=== PATIENT | male | born 2000 | race Caucasian/White ===

== ENCOUNTER 2023-02-21 18:55 | Emergency (ER) | payer MEDICAID, SELFPAY ==
[2023-02-21] VITALS (7 sets, daily range): BP systolic 121–134; BP diastolic 83–106; PULSE 63–69; RESP 15–17; TEMP 36.7–36.8; O2SAT 98–100; BMI 22.8
--- NOTE | 2023-02-21 19:05 | ECG_ITS ---
APPROVED REPORT Exam: Resting ECG HR:70 bpm ECG Measurements Heart Rate 70 AXES [place] 142 P 50 QRSd 89 QRS 68 QT 361 T 74 QTc 382 Conclusion SINUS RHYTHM NORMAL ECG UNCONFIRMED REPORT Electronically signed by : Wilfredo Bass MD 02/22/2023 14:45:25
[2023-02-21 19:24] LABS: Basophils # 0.1 K/mm3 (0-0.2); Basophils % 0.5 % (0.1-2.0); Eosinophils # 0.3 K/mm3 (0.0-0.4); Eosinophils % 2.9 % (0.1-12.0); Hematocrit 47.5 % (42.0-52.0); Hemoglobin 16.2 g/dL (14.1-18.0); Lymphocytes # 3.6 K/mm3 (0.7-4.5); Lymphocytes % 35.5 % (10-50); Mean Corpuscular HGB Conc 34.1 g/dL (31.8-35.4); Mean Corpuscular Hemoglobin 30.5 pg (27.0-31.2); Mean Corpuscular Volume 89.7 fl (80-94); Mean Platelet Volume 8.4 fl (7.4-10.4); Monocytes # 0.3 K/mm3 (0.1-1.0); Monocytes % 3.4 % (1.7-9.3); Neutrophils # 5.8 K/mm3 (1.8-7.8); Neutrophils % 57.8 % (37.0-80.0); Platelet Count 335 K/mm3 (142-424); Red Blood Count 5.29 M/mm3 (4.60-6.20); Red Cell Distribution Width 13.9 % (11.5-17.5)
[2023-02-21 19:25] LABS: Chloride 102 mmol/L (98-107); Sodium 141 mmol/L (136-145)
[2023-02-21 19:28] LABS: Alanine Aminotransferase 28 U/L (12-78); Albumin Level 4.9 g/dl (3.5-5.0); Albumin/Globulin Ratio 1.4 (1.1-1.8); Alkaline Phosphatase 86 U/L (38-126); Aspartate Amino Transferase 33 U/L (17-59); Bilirubin,Total 0.5 mg/dl (0.2-1.3); Blood Urea Nitrogen 6 mg/dl (9-20); Calcium 9.2 mg/dl (8.4-10.2); Carbon Dioxide 29 mmol/L (22.0-30.0); Creatinine Clearance Estimated 122 mL/min (50-200); Estimated Glomerular Filt Rate 104 ml/min (>60); GFR (African American) 125 ML/MIN (>60); Globulin 3.4 g/dL (1.3-3.2); Glucose 99 mg/dl (74-100); Lipase 107 U/L (23-300); Total Protein,Serum 8.3 g/dl (6.3-8.2)
--- NOTE | 2023-02-21 19:29 | PC.NURSE ---
Patient reports that he took a 25mg meclizine at approximately 4:30pm with no change in symptoms. Provider notified.
--- NOTE | 2023-02-21 20:46 | [facility].EDGENADL ---
Discharge Plan Disposition Patient Disposition: Home, Self-Care Prescriptions Prescriptions: New meclizine 50 mg tablet 50 mg PO BID PRN (Reason: dizziness) Qty: 30 0RF prednisone 20 mg tablet 40 mg PO BID 5 Days Qty: 20 0RF Referrals Follow up/Referrals: Zeinab Rayo [Primary Care Provider] - See instructions Activity Restrictions/Add. Instructions Additional Instructions/Restrictions: Call your family doctor to establish care for this visit to the emergency department and schedule follow-up within 48 hours to ensure improvement. If you have any worsening of your condition or any other concerning signs or symptoms, return to the emergency department or your primary care doctor for further evaluation. Talk to family doctor about getting scheduled with a neurologist here at [facility] if symptoms persist. Clinical Impressions Clinical Impression: Vertigo Discharge ED Provider: Anthony Gary General Adult HPI General Chief complaint: Dizziness Stated complaint: dizzy Time Seen by Provider: 02/21/23 18:58 Mode of Arrival: Ambulatory Source of Information: Patient Limitations: No Limitations Description of Symptoms (Recalled from ER Triage Doc. by RN): Patient reports dizziness starting at 2pm today. Intermittent, worse with head movement. Patient reports that he feels drunk without having drank any alcohol. Patient also reports substernal pressure 5/10. Patient is on approximately day 20 of amoxicillin for a dental infection. States he took a 50mg tramadol about 1pm today, also took one yesterday without any dizziness. 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 Patient states started around 2 or 3 PM today. Intermittent. It started when he stood up and started walking. Made worse with head movement and body movements. Had epigastric discomfort when it started, like he was going to vomit, but did not. No vision changes, unilateral deficits, fevers or chills, recent illness, diarrhea. Recently put on amoxicillin for dental infection. Related Data Previous Rx's Medication Instructions Recorded meclizine 50 mg tablet 50 mg PO BID PRN dizziness #30 tabs 02/21/23 prednisone 20 mg tablet 40 mg PO BID 5 days #20 tabs 02/21/23 Allergies Allergy/AdvReac Type Severity Reaction Status Date / Time No Known Allergies Allergy Verified 02/21/23 19:18 [facility] Disclaimer: The information contained in this section may have been updated after the patient was seen, as this information can be updated by other users. Medical History (Updated 02/21/23 @ 21:59 by Anthony Gary MD) No significant past medical history Social History Smoking Status: Former smoker alcohol intake: never current occupational status: employed Travel in the last 8 weeks: None ROS Obtained: Yes All systems reviewed & no additional complaints except as documented Physical Exam General General appearance: alert and in no apparent distress Head Head exam: atraumatic and normocephalic Eye Eye exam: Present normal appearance, PERRL and EOMI ENT ENT exam: Present mucous membranes moist Neck Neck exam: Present normal inspection, full ROM and trachea midline Respiratory Respiratory exam: Absent respiratory distress, wheezes, stridor, accessory muscle use or prolonged expiratory phase Cardiovascular Cardiovascular exam: Present normal rhythm Abdominal Exam Abdominal exam: Present soft; Absent distention, tenderness, guarding, rebound, rigidity or normal bowel sounds Extremities Exam Extremities exam: Absent edema Neurological Exam Neurological exam: Present alert, oriented X3, CN II-XII intact, normal gait and other (NIH 0. Hints exam negative. Patient has fast beating nystagmus left far ranging eye jacob.); Absent motor sensory deficit Skin Skin exam: Present warm and dry; Absent diaphoresis or erythema Medical Decision Making Medical Records Medical records
== END 2023-02-21 22:04 | disposition home or self-care (01) ==
PROVIDERS: Emergency Provider Emergency Medicine; PCP Nurse Practitioner Family
DX: R42 Dizziness and giddiness (principal); R10.13 Epigastric pain; Z87.891 Personal history of nicotine dependence
CPT/HCPCS: 80053; 83690; 85025; 93005; 96360; 99285